=== PATIENT | female | born 1995 | race Hispanic/Latino ===

== ENCOUNTER 2021-08-28 21:33 | Day surgery (SDC) | payer OTHER ==
[2021-08-28] MEDS ORDERED: hydrALAZINE 20 MG/ML VIAL SLOW IVP PRN (22:09)
[2021-08-28 22:10] VITALS: BMI 35.6
[2021-08-28] MEDS ORDERED: Lactated Ringer's 1,000 ML IV SCH (22:45)
[2021-08-29] MEDS ORDERED: Bisacodyl 10 MG SUPP PR SCH (01:00)
== END 2021-08-29 01:25 | disposition home or self-care (01) ==
LOC: CSHLD/OP 21:33
PROVIDERS: ATTEND Family Medicine
DX: O47.1 False labor at or after 37 completed weeks of gestation (principal); O99.891 Other specified diseases and conditions complicating pregnancy; N89.8 Other specified noninflammatory disorders of vagina; R10.2 Pelvic and perineal pain; O99.013 Anemia complicating pregnancy, third trimester; O99.613 Diseases of the digestive system complicating pregnancy, third trimester; K59.00 Constipation, unspecified; Z3A.37 37 weeks gestation of pregnancy
CPT/HCPCS: 99282